=== PATIENT | female | born 1965 | race Caucasian/White ===

== ENCOUNTER 2025-01-11 10:59 | Emergency (ER) | payer OTHER ==
[2025-01-11 12:44] LABS: Absolute Eosinophils 0.1 K/uL (0-0.5); Absolute Lymphocytes (CBC) 1.9 K/uL (0.7-4.9); Absolute Monocytes 0.5 K/uL (0.1-1.3); Absolute Neutrophil 4.1 K/uL (1.8-8.0); Basophils % 0.6 % (0-1.3); Eosinophils % 1.5 % (0-4.4); Hematocrit 44.5 % (36.0-45.0); Hemoglobin 15.8 g/dL (12.0-15.0); Lymphocytes % 28.7 % (15.3-44.8); MCH 32.3 pg (27.0-35.0); MCHC 35.5 g/dL (32.0-36.0); MCV 90.9 fL (80-100); MPV 6.9 fL (7.6-11.3); Monocytes % 7.7 % (3.3-12.3); Neutrophils % 61.5 % (41.7-73.7); Nucleated Red Blood Cells % 0.1 % (0-0); Platelets 405 thou/uL (152-406); Red Cell Distribution Width 13.1 % (12.1-15.2)
[2025-01-11 12:53] LABS: PT Prothrombin Time 11.3 SECONDS (10-13.0); Protime INR 0.99
[2025-01-11 13:01] LABS: Albumin 4.3 g/dL (3.4-5.0); Albumin/Globulin Ratio 1.1 (1.1-1.8); Anion Gap 10.1 mEq/L (5.0-15.0); Bilirubin Total 0.6 mg/dL (0.2-1.0); Globulin 3.8 g/dL (2.3-3.5); Potassium 4.1 mEq/L (3.5-5.1); Protein, Total 8.1 g/dL (6.4-8.2)
--- NOTE | 2025-01-11 13:26 | EDPHYS ---
Physician Documentation [facility] Name: Eri Ruelas Age: 59 yrs Sex: Female : 1965 Arrival Date: 01/11/2025 Time: 10:59 Bed 24 Private MD: ED Physician Edmund Mason HPI: 01/11 11:31 This 59 yrs old Female presents to ER via Ambulatory with complaints of Rash. ms3 11:31 59-year-old female with past medical history of hyperlipidemia presents to the [facility] emergency department for bilateral lower extremity rash that in October while she was in [place]. Patient states on Thursday the rash became worse. Patient denies pain. Patient denies any alleviating or inciting factors.. Historical: - Allergies: 11:26 No Known Allergies; cm10 - Home Meds: : pravastatin 10 mg oral tablet [Active]; cm10 - PMHx: 11:26 Hypercholesterolemia; cm10 - Immunization history:: Adult Immunizations up to date. - Infectious Disease History:: Denies. - Social history:: Smoking status: Patient denies any tobacco usage or history of. ROS: 11:31 Constitutional: Negative for fever, and chills. Cardiovascular: Negative for chest ms3 pain, and palpitations. Respiratory: Negative for shortness of breath, cough, wheezing, and pleuritic chest pain, Abdomen/GI: Negative for abdominal pain, nausea, vomiting, diarrhea, and constipation, MS/Extremity: Negative for injury and deformity, 11:31 Skin: Positive for rash, 11:31 Hematologic/Lymphatic: Negative for abnormal bleeding, petechiae, Exam: 11:31 Constitutional: This is a well developed, well nourished patient who is awake, alert, ms3 and in no acute distress. Cardiovascular: Regular rate and rhythm with a normal S1 and S2. No gallops, murmurs, or rubs. Normal PMI, no JVD. No pulse deficits. Respiratory: Lungs have equal breath sounds bilaterally, clear to auscultation and percussion. No rales, rhonchi or wheezes noted. No increased work of breathing, no retractions or nasal flaring. Abdomen/GI: Soft, non-tender, with normal bowel sounds. No distension or tympany. No guarding or rebound. No evidence of tenderness throughout. 11:31 Skin: purpuric rash on lower extremities, Vital Signs: 11:25 BP 139 / 89; Pulse 75; Resp 15; Temp 98.2; Pulse Ox 100% on R/A; Weight 72.57 kg; cm10 Height 5 ft. 2 in. ; Pain 0/10; 14:06 BP 131 / 78; Pulse 78; Resp 16; Pulse Ox 100% ; bp 11:25 Body Mass Index 29.26 (72.57 kg, 157.48 cm) cm10 11:25 Pain Scale: Adult cm10 MDM: 11:31 Medical Screening Exam initiated ms3 13:31 Differential diagnosis: Vasculitis vs Folliculitis vs Rash. Data reviewed: vital signs, ms3 nurses notes, lab test result(s), and as a result, I will discharge patient. I considered the following discharge prescriptions or medication management in the emergency department Medications were administered in the Emergency Department. See MAR. Counseling: I had a detailed discussion with the patient and/or guardian regarding the historical points, exam findings, and any diagnostic results supporting the discharge/admit diagnosis, lab results, the need for outpatient follow up, to return to the emergency department if symptoms worsen or persist or if there are any questions or concerns that arise at home. Special discussion: I discussed with the patient/guardian in detail that at this point there is no indication for admission to the hospital. It is understood, however, that if the symptoms persist or worsen the patient needs to return immediately for re-evaluation. ED course: Discussed laboratory results with patient and her . Patient given prescription for prednisone 40 mg daily x 5 days. Patient to follow-up with rheumatology or dermatology in 2 to 3 days. Patient and her understand and agree with plan. All questions were answered. Return precautions discussed include worsening symptoms, or any other concerns.. 01/11 11:31 Order name: CBC with Diff; Complete Time: 13:10 ms3 01/11 11:31 Order name: CMP; Complete Time: 13:10 ms3 01/11 11: Order name: PT-INR; Complete Time: 13: ms3 Administered Medications: 13:45 Drug: predniSONE PO 40 mg PO once Route: PO; bp 14:07 Follow up: Response: No adverse reaction bp Disposition Summary: 01/11/25 13:26 Discharge Ordered Notes: Location: Home ms3 Condition: Stable ms3 Diagnosis - Rash and other nonspecific skin eruption ms3 Followup: ms3 - With: Private Physician - When: 2 - 3 days - Reason: Recheck today's complaints Discharge Instructions: - Discharge Summary Sheet ms3 - Rash, Adult ms3 - Vasculitis ms3 Forms: - Medication Reconciliation Form ms3 - Antibiotic Education ms3 - Prescription Opioid Use ms3 - Patient Portal Instructions ms3 - Leadership Thank You Letter ms3 Prescriptions: - Prednisone 20 mg Oral Tablet - take 2 tablets ORAL route once daily for 5 days; 10 tablet; Refills: 0, Product ms3 Selection Permitted Signatures: Dispatcher [employer] EDMS Travis Gonzalez, RN RN bp Edmund Mason DO DO ms3 Cris Mccoy RN RN cm10 Corrections: (The following items were deleted from the chart) 11: 11:31 CBC+H.LAB.BRZ ordered. EDMS EDMS 11: 11:31 COMPREHENSIVE METABOLIC PANEL+C.LAB.BRZ ordered. EDMS EDMS 11:31 11:31 PROTIME (+INR)+COAG.LAB.BRZ ordered. EDMS EDMS
--- NOTE | 2025-01-11 13:26 | ER ---
Nurse's Notes [facility] Name: Eri Ruelas Age: 59 yrs Sex: Female : 1965 Arrival Date: 01/11/2025 Time: 10:59 Bed 24 Private MD: Diagnosis: Rash and other nonspecific skin eruption Presentation: 01/11 11:25 Chief complaint: Patient states: Rash to bilateral lower legs onset Thursday. Pt states cm10 that she was sent to the ER by urgent care. Pt states that the rash itches and it is spreading up her legs. Coronavirus screen: Client denies travel out of the [place] in the last 14 days. Ebola Screen: Patient denies travel to an Ebola-affected area in the 21 days before illness onset. Initial Sepsis Screen: Does the patient meet any 2 criteria? No. Patient's initial sepsis screen is negative. Does the patient have a suspected source of infection? No. Patient's initial sepsis screen is negative. Risk Assessment: Do you want to hurt yourself or someone else? Patient reports no desire to harm self or others. Onset of symptoms was January 09, 2025. 11:25 Method Of Arrival: Ambulatory cm10 11:25 Acuity: LIAM 4 cm10 Triage Assessment: 11:27 General: Appears in no apparent distress. comfortable, Behavior is calm, cooperative. cm10 Pain: Denies pain. Neuro: No deficits noted. Level of Consciousness is awake, alert, obeys commands, Oriented to person, place, time, situation, Appropriate for age. Respiratory: No deficits noted. Airway is patent Respiratory effort is even, unlabored, Respiratory pattern is regular, symmetrical. Derm: Rash noted that is itchy, red, on right leg and left leg. Historical: - Allergies: 11:26 No Known Allergies; cm10 - Home Meds: 11:26 pravastatin 10 mg oral tablet [Active]; cm10 - PMHx: 11:26 Hypercholesterolemia; cm10 - Immunization history:: Adult Immunizations up to date. - Infectious Disease History:: Denies. - Social history:: Smoking status: Patient denies any tobacco usage or history of. Screenin:06 [facility] [place] ED Fall Risk Assessment (Adult) History of falling in the last 3 months, bp including since admission No falls in past 3 months (0 pts) Confusion or Disorientation No (0 pts) Intoxicated or Sedated No (0 pts) Impaired Gait No (0 pts) Mobility Assist Device Used No (0 pt) Altered Elimination No (0 pt) Score/Fall Risk Level 0 - 2 = Low Risk Oriented to surroundings. Abuse screen: Denies threats or abuse. Denies injuries from another. Nutritional screening: No deficits noted. Tuberculosis screening: No symptoms or risk factors identified. Assessment: 11:30 General: Appears in no apparent distress. comfortable. bp Vital Signs: 11:25 BP 139 / 89; Pulse 75; Resp 15; Temp 98.2; Pulse Ox 100% on R/A; Weight 72.57 kg; cm10 Height 5 ft. 2 in. ; Pain 0/10; 14:06 BP 131 / 78; Pulse 78; Resp 16; Pulse Ox 100% ; bp 11:25 Body Mass Index 29.26 (72.57 kg, 157.48 cm) cm10 11:25 Pain Scale: Adult cm10 ED Course: 11:03 Patient arrived in ED. mr 11:07 Edmund Mason DO is Attending Physician. ms3 11:26 Triage completed. cm10 11:27 Arm band placed on right wrist. Patient placed in an exam room, on a stretcher. cm10 12:08 Travis Gonzalez, RN is Primary Nurse. bp 12:35 Initial lab(s) drawn, by me, sent to lab. Inserted saline lock: 22 gauge in right bp forearm, using aseptic technique. Blood collected. Flushed with 10 mL NS. 14:06 Patient has correct armband on for positive identification. bp 14:06 No provider procedures requiring assistance completed. IV discontinued, intact, bp bleeding controlled, No redness/swelling at site. Pressure dressing applied. Administered Medications: 13:45 Drug: predniSONE PO 40 mg PO once Route: PO; bp 14:07 Follow up: Response: No adverse reaction bp Medication: 14:06 VIS not applicable for this client. bp Outcome: 13:26 Discharge ordered by . ms3 14:06 Discharged to home ambulatory, with family, bp 14:06 Condition: stable 14:06 Discharge instructions given to patient, family, Instructed on discharge instructions, follow up and referral plans. medication usage, Demonstrated understanding of instructions, follow-up care, medications, Prescriptions given X 1, 14:07 Patient left the ED. bp Signatures: Jossy Ahuja, Reg Reg mr Travis Gonzalez, RN RN bp Edmund Mason, DO ms3 Cris Mccoy, LUKAS RN cm10
[2025-01-11] MEDS ORDERED: predniSONE 20 MG TAB ONE (13:43)
[2025-01-11 20:14] VITALS: TEMP 98.2; O2SAT 100
[2025-01-11 20:19] VITALS: BP 131/78
== END 2025-01-11 14:07 | disposition home or self-care (01) ==
LOC: ER 10:59
DX: R21 Rash and other nonspecific skin eruption (principal)
CPT/HCPCS: 85025; 36415; 85610; 80053; J7512